=== PATIENT | female | born 1945 | race Caucasian/White ===

== ENCOUNTER 2016-08-17 01:11 | Day surgery (SDC) | payer MEDICARE, MEDICAID ==
[2016-08-17] VITALS (22 sets, daily range): BP systolic 112–150; BP diastolic 43–93; PULSE 48–56; RESP 10–18; O2SAT 94–98
[~2016-08-17] VITALS: Ht 160 cm; Wt 91.5 kg
[~2016-08-17 01:11] MED LIST: AMLO5TAB2 PO; ASPI-628 PO; CETI-343 PO; CHOL400C9 PO; CITA20TA11 PO; CLOP75TA28 PO; FENO134C PO; GABA-502 PO; GLIM4TAB2 PO; INDA2.5T2 PO; LIRA0.6P SQ; LOSA25TA21 PO; MAGN250T29 PO; METO25TA99 PO; PANT40TA3 PO; VITA1CAP PO
[2016-08-17 06:57] LABS: BASOPHILS % (AUTO) 0.7 % (0-3); EOSINOPHILS % (AUTO) 7.3 % (0-5); MONOCYTES % (AUTO) 7.7 % (4-12); Mean Corpuscular Hemoglobin 27.9 pg (27.0-35.0); NEUTROPHILS % (AUTO) 56.9 % (40-74); Platelet Count 341 bil/L (150-400)
[2016-08-17] MEDS ORDERED: Sodium Bicarb 8.4% Inj 150 MEQ in Dextrose 5% 1,000 ML IV ONE (07:00)
[2016-08-17] MEDS ORDERED: iron PO (07:40)
--- NOTE | 2016-08-17 07:41 | NUR ---
Arzola catheter 16 fr inserted without difficulty with return clear yellow urine.
[2016-08-17] MEDS ORDERED: Heparin 1,000 Units/500 mL NS Premix IV ONE ×2 (08:02→11:20)
[2016-08-17] MEDS ORDERED: Heparin 1,000 Unit/mL 10 mL Inj ONE ×3 (08:02→10:33)
[2016-08-17] MEDS ORDERED: Heparin 5,000 Units/500 mL NS Premix IV ONE ×3 (08:03→10:03)
[2016-08-17] MEDS ORDERED: fentaNYL-PF 50 mCg/mL 2 mL Inj ONE ×4 (08:23→13:41)
[2016-08-17] MEDS ORDERED: Nitroglycerin 50,000 mcg/250 mL D5W Premix IV ONE ×2 (08:35→11:13)
--- NOTE | 2016-08-17 12:20 | NUR ---
Dr Lopez called and informed of patient's blood sugar 246. His post orders iv fluids is written for NS, however the preorders hydration was for bicarbonate infusion which is currently running. Bicarbonate also mixed in D5W. Order clarification is to continue with bicarbonate x 10 hrs post, institute insulin subq regular insulin orders to cover patient for meals. She is not eating yet pending removal of right arterial femoral line. At present he does not want to treat glucose of 246.
[2016-08-17] MEDS ORDERED: Ondansetron 2 mg/mL 2 mL Inj IVPUSH PRN (13:45)
[2016-08-17] MEDS ORDERED: Atropine 1 mg/10 mL (Code) Syringe IVPUSH PRN (13:45)
[2016-08-17] MEDS ORDERED: Sodium Chloride LOK Flush 10 mL Syringe IVFLUSH PRN (13:45)
--- NOTE | 2016-08-17 14:05 | NUR ---
Manual compression completed by Mariana Oliveira. Pt very sensitive to removal of tape and subsequent manual compression to right groin, so Dr Lopez called and per his order, fentanyl 50mcg and versed 1 mg both IV given for removal of arterial line. 5 lb weighted sandbag applied over groin to remind patient not to move right leg or shift her hips.Soft restraint to right leg to also remind patient.
[2016-08-17] MEDS ORDERED: Insulin REGULAR SS Med-Dose SUBQ SCH (14:30)
--- NOTE | 2016-08-17 15:13 | DI96 ---
[address] [address] PERIPHERAL CATHETERIZATION/INTERVENTION REPORT PATIENT: DELMY THOMPSON : 1945 MR#: [id number] ADMIT: 08/17/2016 JOB ID: [id number] DATE OF PROCEDURE: 08/17/2016 PATIENT PROFILE: The patient is a 71-year-old lady with history of diabetes, hypertension, hyperlipidemia, chronic kidney disease, and tobacco abuse. She had multiple intervention procedure to the left lower extremity. She developed recurrent claudication for the past few months. PROCEDURE: 1. Conscious sedation for 2 hours and 54 minutes. 2. Vascular access from the right groin under ultrasound guidance. 3. Selective contralateral left common femoral angiogram with runoff. 4. Directional atherectomy to the proximal and distal left superficial femoral artery and above knee left popliteal artery.. 5. Drug-coated balloon angioplasty to the entire length of the left superficial femoral artery and above knee left popliteal artery. VASCULAR CLOSURE DEVICE: None. COMPLICATIONS: None. METHOD: Conscious sedation was achieved with IV Versed and IV fentanyl. Vascular access was obtained from the right groin under 1% lidocaine local anesthesia using a 6-Bhutanese sheath. This was performed under ultrasound guidance. Heparin 3,000 units were given. A 5-Bhutanese RIm catheter together with a Glidewire was used to get over the horn and direct into the left superficial femoral artery. This was exchanged to a 4-Bhutanese slip cath and a Mica Advantage wire. A 6-Bhutanese Laurel destination sheath was put in place. The tip of the sheath was placed in the left common femoral artery. Selective contralateral left common femoral angiogram with runoff was performed in the AP view by injecting contrast at a rate of 4 cc/sec for 7 seconds. Repeated doses of heparin was given in order to maintain ACT above 250. A 0.035 Quick Cross catheter together with a 0.014 run-through wire was used to cross the severe stenosis of the left superficial femoral artery. Once the distal position of the Quick Cross catheter is in the below-knee popliteal artery, the run-through wire was removed and a 5 mm spider filter was placed in the below-knee popliteal artery. A 6-Bhutanese Hawk One device was then used for atherectomy in the proximal and distal left superficial femoral artery and above knee popliteal lesions. Multiple passes were performed. This catheter was then removed. The lesions were pre-dilated with a 5 x 150 mm balloon. An Impact Admiral 5 x 150 drug-coated balloon was then used to dilate the distal lesion. It was inflated up to 8 atmospheres for 3 minutes. Another Impact Admiral 5 x 120 mm balloon was then used to dilate in the mid lesion. It was inflated up to 8 atmospheres for 3 minutes. The third Impact Admiral 5 x 80 mm balloon was used to dilate in the proximal lesion. It was inflated up to 8 atmospheres for 3 minutes. Final angiogram was obtained. Right femoral angiogram was performed. The destination sheath was then exchanged to a short 6-Bhutanese sheath. The femoral sheath will be removed two hours later. TOTAL CONTRAST USED: 86 cc. FLUOROSCOPY TIME: 19.1 minutes. TOTAL RADIATION DOSE: 264 mGy. RESULTS: 1. The left common femoral artery has 30%-40% stenosis. The left superficial femoral artery has diffuse 70%-90% in-stent restenosis in the proximal portion and 30% stenosis in the mid portion and 70%-95% stenosis in the distal portion with the 95% stenosis in the left above-knee popliteal artery. The left below-knee popliteal artery is normal. 2. There is three-vessel runoff below the left knee. They have diffuse galh-wi-pxuenccb disease. 3. Directional atherectomy and drug-coated balloon angioplasty was performed to the left superficial femoral artery and above knee left popliteal artery to achieve an excellent angiographic result. [facility]
--- NOTE | 2016-08-17 15:57 | NUR ---
Report called to Nancy Argueta R.N. Pt right groin is stable, [address] still [address] over right groin.Pt more awake now and off oxygen.No further c/o pain since sheath removed. Ready for transfer.
[2016-08-17] MEDS: SODIUM BICARB IV SCH ×2 (17:24→22:54)
[2016-08-17] MEDS: D5 IV SCH ×2 (17:24→22:54)
--- NOTE | 2016-08-17 18:21 | NUR ---
ADMIT TO [facility] Report received from Jovana Norris RN in [facility]. Patient arrived to [facility] in stable condition. Telemetry placed, SB in 50s, and vitals WNL. R groin site soft, non-tender, no oozing or hematoma present, dressing C/D/I. Patient on bedrest until 1999, then may ambulate as tolerated, groin site to be monitored regularly. No c/o pain, Bicarbonate gtt to infuse at 101 mL/hr until 2200, then may saline lock. Denies n/v or abdominal pain, tolerated PO intake in [facility], dinner tray ordered. Will continue to monitor, Dr. Lopez anticipates discharging patient tomorrow.
[2016-08-17] MEDS ORDERED: Glucose 40% Oral Gel 15 Gm Tube PO PRN (20:25)
[2016-08-17] MEDS: MeTOProlol XL 25 mg ER24 Tablet PO SCH (21:29)
[2016-08-17] MEDS: Insulin LISPRO 300 Unit/3 mL Inj SUBQ SCH (22:00)
[2016-08-18 00:27] VITALS: PULSE 57
[2016-08-18 02:55] VITALS: BP 121/52; PULSE 55; RESP 16; O2SAT 96
[2016-08-18 03:21] LABS: Mean Corpuscular Hemoglobin 28.4 pg (27.0-35.0); Mean Corpuscular Volume 89.9 fL (81-100)
--- NOTE | 2016-08-18 05:20 | NUR ---
Tele/Groin-site Off Bed rest @ 1999, Room ait Arzola DC'd @ 1999, Bi-Carb off @ 2200 , Saline locked x2 A&O x 3 using call light appropriately, Voiding as per base for pt. Room Air. \ Rt groin site CDI, no C/O pain. no drainage. Left radial pulse absent Tele: [place].
[2016-08-18] MEDS ORDERED: Pantoprazole 40 mg ER24 Tablet PO SCH (06:30)
[2016-08-18 08:00] VITALS: PULSE 51
[2016-08-18] MEDS: MeTOProlol XL 25 mg ER24 Tablet PO SCH (08:06)
[2016-08-18] MEDS: Insulin LISPRO 300 Unit/3 mL Inj SUBQ SCH (08:07)
[2016-08-18 08:30] VITALS: BP 148/47; PULSE 51; RESP 18; O2SAT 97
--- NOTE | 2016-08-18 10:18 | NUR ---
P: Pain I: Pt denies any pain or SOB. RA with sats stable. SB. BP stable. Taking diet and fluids well. Voiding qs. Up in room independently. Saline lock x2 dc'd with catheters intact. Blood sugar stable 154 with 1 unit of sliding scale insulin given. Pt alert and oriented. Uses call light appropriately. Discharge instructions given and same medications ordered. Pt has permission to drive herself home. E: Stable S: Discharged at 0930. No difficulties and pt indicates understanding of discharge instructions and medications.
--- NOTE | 2016-08-18 16:38 | DIS ---
[address] [address] DISCHARGE SUMMARY PATIENT: DELMY THOMPSON : 1945 MR#: [id number] ADMIT: 08/17/2016 JOB ID: [id number] DIS: 08/18/2016 ADMITTING DIAGNOSIS: Peripheral artery disease with claudication of the left lower extremity. DISCHARGE DIAGNOSIS: Peripheral artery disease with claudication of the left lower extremity. SECONDARY DIAGNOSES: 1. Status post coronary artery bypass surgery x4 in 2006. 2. Diabetes mellitus. 3. Hypertension. 4. Hypercholesterolemia. 5. Prior history of tobacco use. 6. Anemia. PROCEDURE: 1. Selective contralateral left common femoral angiogram with runoff. 2. Directional atherectomy to the proximal and distal left superficial femoral artery and above-knee left popliteal artery. 3. Drug-coated balloon angioplasty to the entire length of the left superficial femoral artery and above-knee left popliteal artery. COMPLICATION: None. HISTORY: Please see the detailed history in the accompanying office note dated July 28, 2016. She had claudication of the left calf for a long time. She underwent multiple intervention procedures in the past. The last procedure was performed in October of 2014. She started having recurrent claudication in the past few months. She underwent angiogram on August 17, 2016, which demonstrated diffuse severe re-stenosis in the previous stent in the proximal and distal left superficial femoral artery and above-knee left popliteal artery. This was successfully treated with directional atherectomy and drug-coated balloon angioplasty. The final angiographic result was excellent. The patient tolerated the procedure well. She was discharged from the hospital on the following day in good condition. She will return to see me in 4-6 weeks with follow up arterial duplex ultrasound. TONIE
== END 2016-08-18 09:36 | disposition home or self-care (01) ==
LOC: SOUO 01:11 → PCC 16:20 → SOUO 08-18 09:36
PROVIDERS: ATTEND Internal Medicine Interventional Cardiology
DX: I70.212 Atherosclerosis of native arteries of extremities with intermittent claudication, left leg (principal); T82.856A Stenosis of peripheral vascular stent, initial encounter; Y84.8 Other medical procedures as the cause of abnormal reaction of the patient, or of later complication, without mention of misadventure at the time of the procedure; I25.10 Atherosclerotic heart disease of native coronary artery without angina pectoris; I12.9 Hypertensive chronic kidney disease with stage 1 through stage 4 chronic kidney disease, or unspecified chronic kidney disease; E11.22 Type 2 diabetes mellitus with diabetic chronic kidney disease; N18.3 Chronic kidney disease, stage 3 (moderate); E78.5 Hyperlipidemia, unspecified; Z79.01 Long term (current) use of anticoagulants; Z79.82 Long term (current) use of aspirin; Z79.84 Long term (current) use of oral hypoglycemic drugs; Z95.1 Presence of aortocoronary bypass graft; Z87.891 Personal history of nicotine dependence; E78.00 Pure hypercholesterolemia, unspecified; D64.9 Anemia, unspecified
CPT/HCPCS: 36415; 37225; 75710; 80048; 83036; 85025; 85027; 93005; 99152; 99153; C1714; C1725; C1769; C1884; C1887; C2623; J0131; J1644; J2250; J3010; J7070; Q9967

== ENCOUNTER 2016-12-12 00:12 | Day surgery (SDC) | payer MEDICARE, MEDICAID ==
[2016-12-12] VITALS (13 sets, daily range): BP systolic 141–162; BP diastolic 50–97; PULSE 53–58; RESP 11–20; O2SAT 93–98
[~2016-12-12] VITALS: Ht 160 cm; Wt 84.0 kg
[~2016-12-12 00:12] MED LIST changes: -CITA20TA11 PO; +iron PO
[2016-12-12] MEDS ORDERED: 0.9% Sodium Chloride 1,000 ML IV SCH (07:15)
[2016-12-12 07:47] LABS: BASOPHILS % (AUTO) 0.9 % (0-3); EOSINOPHILS % (AUTO) 7.2 % (0-5); MONOCYTES % (AUTO) 6.7 % (4-12); Mean Corpuscular Hemoglobin 28.1 pg (27.0-35.0); Mean Corpuscular Volume 87.5 fL (81-100); NEUTROPHILS % (AUTO) 54.9 % (40-74); Platelet Count 328 bil/L (150-400)
[2016-12-12] MEDS ORDERED: ASPI-973 PO (07:57)
[2016-12-12] MEDS ORDERED: VIT D3 PO (08:01)
[2016-12-12] MEDS ORDERED: VIT B COMPLEX PO (08:02)
[2016-12-12] MEDS ORDERED: Heparin 1,000 Unit/mL 10 mL Inj ONE (08:11)
[2016-12-12] MEDS ORDERED: Heparin 10,000 Unit/1,000 mL NS Premix IV ONE (08:11)
[2016-12-12] MEDS ORDERED: Nitroglycerin 50,000 mcg/250 mL D5W Premix IV ONE (08:11)
[2016-12-12] MEDS ORDERED: fentaNYL-PF 50 mCg/mL 2 mL Inj ONE (08:50)
--- NOTE | 2016-12-12 10:02 | DI96 ---
[address] [address] PERIPHERAL CATHETERIZATION/INTERVENTION REPORT PATIENT: DELMY THOMPSON : 1945 MR#: [id number] ADMIT: 12/12/2016 JOB ID: [id number] DATE OF PROCEDURE: 12/12/2016 PATIENT PROFILE: The patient is a 71-year-old lady who has claudication of the right lower extremity. PROCEDURE: 1. Conscious sedation for 17 minutes. 2. Vascular access from the right groin by using Smart needle. 3. Pelvic angiogram with distal runoff. VASCULAR CLOSURE DEVICE: None. COMPLICATION: None. METHOD: Conscious sedation was achieved with IV Versed and IV fentanyl. Vascular access was obtained from the right groin under 1% lidocaine local anesthesia using a Smart needle. It was somewhat difficult to obtain arterial access due to her peripheral artery disease. A 4-Syrian pigtail catheter was advanced to the lower abdominal aorta and pelvic angiogram with distal runoff performed in the AP view by injecting contrast at the rate of 8 cc/second for 10 seconds. Pelvic angiogram was performed in the VIVIANE and FINCH oblique view. Following sheath removal, hemostasis was achieved by manual compression. The patient tolerated the procedure well. She was transferred to [facility] in good condition. TOTAL CONTRAST: Used 115 cc. FLUOROSCOPY TIME: 1.2 minutes. RESULTS: 1. The abdominal aorta and bilateral common iliac arteries are heavily calcified. The distal abdominal aorta has minor irregularity. 2. The right common iliac artery has eccentric 40% stenosis with heavy calcification. The left common iliac artery has 20% stenosis at its origin. The right external iliac artery has minor irregularity. The left external iliac artery has 30 to 40% stenosis. 3. The right common femoral artery has 70% stenosis in the distal portion. The left common femoral artery has 30% stenosis. 4. The right superficial femoral artery has scattered atherosclerotic plaque with moderate calcification and focal severe 95% stenosis in the mid portion. The left superficial femoral artery has diffuse 20 - 30% in-stent restenosis in the proximal and mid portions. 5. Bilateral popliteal arteries have minor irregularity. 6. There is two-vessel runoff below the right knee. There is three-vessel runoff below the left knee. CONCLUSION: 1. Severe stenosis of the right common femoral artery. 2. Critical stenosis of the mid right superficial femoral artery. [facility]
== END 2016-12-12 23:59 | disposition home or self-care (01) ==
LOC: SOUO 00:12
PROVIDERS: ATTEND Internal Medicine Interventional Cardiology
DX: I70.211 Atherosclerosis of native arteries of extremities with intermittent claudication, right leg (principal); I70.8 Atherosclerosis of other arteries; I70.0 Atherosclerosis of aorta; I25.10 Atherosclerotic heart disease of native coronary artery without angina pectoris; I12.9 Hypertensive chronic kidney disease with stage 1 through stage 4 chronic kidney disease, or unspecified chronic kidney disease; E11.22 Type 2 diabetes mellitus with diabetic chronic kidney disease; N18.3 Chronic kidney disease, stage 3 (moderate); E78.5 Hyperlipidemia, unspecified; Z87.891 Personal history of nicotine dependence; Z95.1 Presence of aortocoronary bypass graft; Z95.820 Peripheral vascular angioplasty status with implants and grafts

== ENCOUNTER 2016-12-28 00:59 | Day surgery (SDC) | payer MEDICARE, MEDICAID ==
[2016-12-28] VITALS (12 sets, daily range): BP systolic 104–145; BP diastolic 38–66; PULSE 45–56; RESP 11–18; O2SAT 96–100
[~2016-12-28] VITALS: Ht 160 cm; Wt 84.5 kg
[~2016-12-28 00:59] MED LIST changes: -ASPI-628 PO; +ASPI-973 PO; -CHOL400C9 PO; -VITA1CAP PO; -iron PO
[2016-12-28 12:15] LABS: EOSINOPHILS % (AUTO) 6.5 % (0-5); MONOCYTES % (AUTO) 7.7 % (4-12); Mean Corpuscular Hemoglobin 28.4 pg (27.0-35.0); Mean Corpuscular Volume 87.6 fL (81-100); NEUTROPHILS % (AUTO) 51.9 % (40-74); Platelet Count 377 bil/L (150-400)
[2016-12-28] MEDS: 0.9% Sodium Chloride 1,000 ML IV SCH ×2 (12:51→17:43)
--- NOTE | 2016-12-28 13:49 | NUR ---
GABRIEL: Pt arrived to [facility] at 1110 for procedure. NPO since 0200 today. IV started X2 at one in each wrist. VSS, tele SB 40-50s, no c/o pain. Bedside blood glucose 94. Arzola catheter inserted just prior to procedure per order. Taken to wheelabrator operator per wheelabrator operator staff at 1345 on bed.
[2016-12-28] MEDS ORDERED: Heparin 10,000 Unit/1,000 mL NS Premix IV ONE (14:03)
[2016-12-28] MEDS ORDERED: fentaNYL-PF 50 mCg/mL 2 mL Inj ONE ×3 (14:08→16:38)
[2016-12-28] MEDS ORDERED: Heparin 1,000 Unit/mL 10 mL Inj ONE ×3 (14:29→15:43)
[2016-12-28] MEDS ORDERED: Heparin 1,000 Units/500 mL NS Premix IV ONE ×2 (15:19→16:35)
[2016-12-28] MEDS ORDERED: Nitroglycerin 50,000 mcg/250 mL D5W Premix IV ONE (15:23)
[2016-12-28] MEDS ORDERED: Protamine Sulfate 10 mg/mL 5 mL Inj ONE ×2 (16:38→16:40)
--- NOTE | 2016-12-28 17:48 | DI96 ---
[address] [address] PERIPHERAL CATHETERIZATION/INTERVENTION REPORT PATIENT: DELMY THOMPSON : 1945 MR#: [id number] ADMIT: 12/28/2016 JOB ID: [id number] DATE OF SERVICE: 12/28/2016 PATIENT PROFILE: The patient is a 71-year-old lady who has claudication of the right lower extremity. PROCEDURE: 1. Conscious sedation for 2 hours and 10 minutes. 2. Vascular access from the left groin under ultrasound guidance. 3. Selective contralateral left common femoral angiogram with runoff. 4. Directional atherectomy to the left common femoral artery. 5. Directional atherectomy to the mid left superficial femoral artery. 6. Drug-coated balloon angioplasty to the mid right superficial femoral artery. 7. Drug-coated balloon angioplasty to the right common femoral artery. 8. Vascular closure device: None. COMPLICATIONS: None. DESCRIPTION OF PROCEDURE: Conscious sedation was achieved with IV Versed and IV fentanyl. Vascular access was obtained from the right groin under 1% lidocaine local anesthesia using a 5-Portuguese sheath. This was performed under ultrasound guidance. Repeated doses of heparin were given in order to maintain ACT above 250. A 5-Portuguese rim catheter was used to get over the horn. A Glidewire was directed into the right profunda artery. It was exchanged over a slit catheter into a Herrick Advantage wire. A 6-Portuguese pinnacle sheath was then placed with the tip of the sheath in the right common femoral artery. A common wire was then placed in the right superficial femoral artery. The mid right superficial femoral artery lesion was pre-dilated with a 2.0 x 20 mm balloon. The common wire was then exchanged over an 0.35 quick cross catheter into a 5 mm spider wire. The spider filter was placed in the below-knee popliteal artery. A Hawk 1 device was then used for directional atherectomy in the right common femoral artery and mid right superficial femoral artery. Multiple passes were performed. After the Hawk 1 device was removed, the mid right superficial femoral artery lesion was then predilated with a 5 x 40 mm balloon. An Impact Admiral 5 x 80 drug coated balloon was then used to dilate in the mid right superficial femoral artery. It was inflated up to 6 atmospheres for 3 minutes. Another Impact Admiral 6 x 40 mm balloon was then used to dilate in the right common femoral artery. It was inflated up to 3 minutes. Final angiogram was obtained. Left femoral angiogram was performed. Following sheath removal, hemostasis was achieved by manual compression. The patient developed moderate good-sized left groin hematoma. The patient tolerated the procedure well. She was transferred to [facility] in good condition. TOTAL CONTRAST USED: 60 cc. FLUORO TIME: 13.4 minutes. TOTAL RADIATION DOSE: 229 milligray. RESULTS: 1. Successful directional atherectomy and drug-coated balloon angioplasty to the right common femoral artery to achieve an excellent angiographic result. 2. Successful directional atherectomy and drug-coated balloon angioplasty to the mid right superficial femoral artery to achieve a good angiographic result. There is a minor linear dissection at this location. 3. There is 2.5-vessel runoff below the right knee.
[2016-12-28] MEDS ORDERED: 0.9% Sodium Chloride 1,000 ML IV ONE (19:10)
[2016-12-28] MEDS ORDERED: Ondansetron 2 mg/mL 2 mL Inj IVPUSH PRN (19:10)
[2016-12-28] MEDS ORDERED: Sodium Chloride LOK Flush 10 mL Syringe IVFLUSH PRN (19:10)
[2016-12-28] MEDS ORDERED: Atropine 1 mg/10 mL (Code) Syringe IVPUSH PRN (19:10)
--- NOTE | 2016-12-28 19:48 | NUR ---
Post Procedure/Transfer to [facility]: Pt arrived back to [facility] bed 3 at 1720. L groin soft with palpable pedal pulses bilaterally. VSS on RA, tele SB 40-50s. c/o pain of 4-5/10 in L groin, pain increased with palpation, but pt denied need for pain medication. Arzola catheter draining clear yellow urine to gravity. Pt alert and oriented, tolerated po intake free of any c/o nausea. Report called to Shanna Olvera RN on [facility]. Pt transferred to room 2023 in bed at 1940 with all of her belongings.
[2016-12-28] MEDS ORDERED: Pantoprazole 40 mg ER24 Tablet PO SCH (21:24)
[2016-12-29 04:04] VITALS: BP 117/48; PULSE 55; RESP 16; O2SAT 97
--- NOTE | 2016-12-29 05:41 | NUR ---
Transfer to [facility]/Groin/Pain Pt transferred to [facility] room 2023 around 0, groin site check done w/ GABRIEL nurse. Area very tender to palpation, but soft. Bilateral pedal pulses weak, but palpable. Pt drowsy and falling asleep easily when first arrived, but easy to wake and oriented, answering questions appropriately and voicing needs. Pt verbalized understanding and compliant with remaining bedrest until 2329. Pt given Tylenol x1 for 5/10 left groin pain, which increased w/ palpation. When reassessed pt stated pain was gone. Pt denied any flank/back pain, stated pain only around area of groin that was palpated. With later reassessment pt denied need for pain medication, appears to sleep comfortably between care interventions. Pt not OOB yet as she went to sleep once able to roll on her side. computer numerical control grinder [place] also assessed groin site this morning after pt had been off bedrest limitations a few hours, continues w/ soft groin and palpable pulses. H&H trending. Vitals stable, Tele SB 50s, no c/o chest pain overnight.
[2016-12-29 05:43] VITALS: PULSE 52
[2016-12-29 06:09] LABS: Mean Corpuscular Hemoglobin 27.9 pg (27.0-35.0); Mean Corpuscular Volume 88.8 fL (81-100)
[2016-12-29 08:00] VITALS: BP 117/53; PULSE 48; RESP 15; O2SAT 96
[2016-12-29] MEDS ORDERED: MeTOProlol XL 25 mg ER24 Tablet PO SCH (08:30)
[2016-12-29 10:13] VITALS: PULSE 49
--- NOTE | 2016-12-29 11:27 | NUR ---
Discharge: VSS, tele SB 40s-50s, RA O2 sats 96%. Groin site tender/soft, pulses weak but palpable. Up ad gilmar, ambulated in ward with no gait instability noted. No changes to home medications. Given cardiac cath discharge instructions. IVs d/c'd intact. D/c'd home with all personal belongings, pt driving self home per Dr Lopez.
--- NOTE | 2016-12-29 13:54 | DIS ---
[address] [address] DISCHARGE SUMMARY PATIENT: DELMY THOMPSON : 1945 MR#: [id number] ADMIT: 12/28/2016 JOB ID: [id number] DIS: 12/29/2016 ADMITTING DIAGNOSIS: Peripheral artery disease with claudication of the right lower extremity. DISCHARGE DIAGNOSIS: Peripheral artery disease with claudication of the right lower extremity. SECONDARY DIAGNOSES: 1. Status post coronary artery bypass surgery x4 in 2006. 2. Diabetes mellitus. 3. Hypertension. 4. Hypercholesterolemia. 5. Prior history of tobacco use. PROCEDURE: 1. Selective contralateral right common femoral angiogram with runoff. 2. Directional atherectomy to the right common femoral artery and mid right superficial femoral artery. 3. Drug-coated balloon angioplasty to the right common femoral artery and mid right superficial femoral artery. HISTORY/HOSPITAL COURSE: Please see the detailed history in the accompanying office note dated December 06, 2016. She had multiple interventional procedures to her left lower extremity. She is able to walk longer distance than she has been in the past. She is not experiencing pain in the right lower extremity when she walks. She start having aching when she walked around 200 m. The patient was found to have severe stenosis with heavy calcification of the right common femoral artery and critical stenosis with heavy calcification of the mid right superficial femoral artery. Those lesions were successfully treated with directional atherectomy and drug-coated balloon angioplasty. The patient was discharged from the hospital on the following day in good condition. She will follow up with me in 1-2 months.
== END 2016-12-29 12:00 | disposition home or self-care (01) ==
LOC: SOUO 00:59 → PCC 19:40 → SOUO 12-29 12:00
PROVIDERS: ATTEND Internal Medicine Interventional Cardiology
DX: I70.211 Atherosclerosis of native arteries of extremities with intermittent claudication, right leg (principal); L76.32 Postprocedural hematoma of skin and subcutaneous tissue following other procedure; Z95.820 Peripheral vascular angioplasty status with implants and grafts; I25.10 Atherosclerotic heart disease of native coronary artery without angina pectoris; E11.9 Type 2 diabetes mellitus without complications; E78.00 Pure hypercholesterolemia, unspecified; I12.9 Hypertensive chronic kidney disease with stage 1 through stage 4 chronic kidney disease, or unspecified chronic kidney disease; N18.3 Chronic kidney disease, stage 3 (moderate); Z87.891 Personal history of nicotine dependence; Z95.1 Presence of aortocoronary bypass graft; Z79.82 Long term (current) use of aspirin; Z79.84 Long term (current) use of oral hypoglycemic drugs; Z79.02 Long term (current) use of antithrombotics/antiplatelets
CPT/HCPCS: 36415; 37225; 80048; 85014; 85018; 85025; 85027; 86922; 99152; 99153; C1714; C1725; C1769; C1884; C1887; C1894; C2623; J0131; J1644; J2060; J2250; J2720; J3010; J7030; Q9967